=== PATIENT | female | born 2000 | race Caucasian/White ===

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

== ENCOUNTER → 2022-07-12 09:18 | Outpatient (BNVA) | payer BC, MEDICAID, SELFPAY | PROVIDERS: Visit Provider Nurse Practitioner Family | DX: R10.9 Unspecified abdominal pain (principal); K59.00 Constipation, unspecified; R80.9 Proteinuria, unspecified | CPT/HCPCS: 81000; 81025 ==

== ENCOUNTER 2022-07-25 18:22 | Emergency (ER) | payer MEDICAID, SELFPAY ==
[2022-07-25 18:27] VITALS: BP 126/77; PULSE 97; RESP 16; TEMP 36.8; O2SAT 99
--- NOTE | 2022-07-25 19:53 | W.ED.GENADLT ---
HPI - General Adult General: Chief complaint: General Medical Stated complaint: right side neck swelling Time Seen by Provider: 07/25/22 19:33 History of Present Illness: 22-year-old female comes in today with swelling in the right anterior neck. Patient reports feeling unwell. Patient denies any specific or localized symptoms except for the abnormality in her neck. Respirations are even. Patient appears mildly unwell but not toxic. Patient appears in mild to no pain. Patient denies any chronic medical problems. Patient is recently stopped her control. X2 days. Patient reports no other concerns or symptoms. Associated symptoms: Reports malaise; Deny chest pain, headache(s), nausea, rash or vomiting Review of Systems General: Reports: 10 or more systems reviewed and unremarkable except in HPI and below Const: Reports: malaise; Denies: fever(s) Eyes: Denies: eye discomfort ENMT: Denies: throat pain or ear or mastoid pain Card: Denies: chest pain Resp: Denies: productive cough GI: Denies: nausea, vomiting, diarrhea or constipation : Denies: difficulty voiding Musc: Reports: back pain (Related to work) Skin/Breast: Denies: rash or pruritus Neuro: Denies: headache(s) Damir/Lymph: Reports: enlarged lymph nodes (Right anterior neck) PFSH ED PFSH: Medical History No pertinent past medical history Surgical History No significant past surgical history Family History Father Diabetes Hypertension Mother Cancer Denies family history of Colon cancer Ovarian cancer Clotting disorder Heart disease Breast cancer Bleeding disorder Uterine cancer Stroke Social History Smoking and tobacco status: never smoked Substance/Drug Use: never Female Reproductive History: Para: 0 Physical Exam Const: COMMON NORMALS: alert HENMT: COMMON NORMALS: normocephalic and TM's normal bilaterally HEAD & SCALP: normocephalic NOSE: Normal nares present TYMPANIC MEMBRANE: TM's normal bilaterally MOUTH: Normal oral and palatal mucosa present THROAT: posterior oropharynx normal Eye: GENERAL EYE: appearance normal, both eyes and all related structures Neck/C-Spine: CERVICAL SPINE: Yes cervical ROM normal and No Cervical spine tenderness Lymph: LYMPHATIC: lymphadenopathy (Right anterior lymph node chain) Resp: COMMON NORMALS: normal respiratory effort and clear to auscultation bilaterally AUSCULTATION: clear to auscultation bilaterally Cardio: COMMON NORMALS: regular rate and regular rhythm RATE: regular rate RHYTHM: regular rhythm GI: COMMON NORMALS: Soft to palpation PALPATION: Yes Soft to palpation and Yes Tenderness to palpation present (GI) Details: RUQ : COMMON NORMALS: Yes no CVA tenderness BLADDER/KIDNEY EXAM: Yes no CVA tenderness Back/Pelvis: COMMON NORMALS: no CVA tenderness Extremity: COMMON NORMALS: normal to inspection Neuro: SENSORIUM/ORIENTATION: Yes alert Skin: COMMON NORMALS: turgor normal GENERAL SKIN EXAM: turgor normal Course Vital Signs: Vital signs: Vital Signs Temperature 98.2 F 07/25/22 18:27 Pulse Rate 97 07/25/22 18:27 Respiratory Rate 16 07/25/22 18:27 Blood Pressure 126/77 07/25/22 18:27 Pulse Oximetry 99 07/25/22 18:27 Oxygen Delivery Me thod Room Air 07/25/22 18:27 MDM - General Adult Medical Decision Making 22-year-old female comes in today for complaints of malaise for last 2 to 3 days. Patient also noted some increased lymphadenopathy in the right side of the neck. On exam posterior pharynx is pink moist. Teeth are in good repair. Bilateral TMs are clear. Nares is open without any signs of drainage. Lungs are clear to auscultation. Skin is warm and dry. Abdomen soft nontender. Differential diagnosis includes upper respiratory infection, tick fever, infectious mono, cat scratch fever, other lymphadenitis. CBC and CMP was unremarkable. Tick panel was outstanding. Monoscreen was negative. We will cover patient for bacterial infection with doxycycline 100 mg twice daily for 10 days. Recommended following up with primary care for recheck in 1 week return to ED for worsening symptoms or new concerns. Lab Data 07/25/22 20:15 07/25/22 20:15 Laboratory Results WBC 8.2 10^3/uL (4.5-13.0) 07/25/22 20:15 RBC 4.18 10^6/uL (4.1-5.3) 07/25/22 20:15 Hgb 12.4 g/dL (11.5-15.3) 07/25/22 20:15 Hct 39.5 % (37.0-47.0) 07/25/22 20:15 MCV 94.5 fl (81-99) 07/25/22 20:15 MCH 29.7 pg (28.0-34.0) 07/25/22 20:15 MCHC 31.4 g/dL (30.0-36.0) 07/25/22 20:15 RDW 14.7 % (12.1-15.1) 07/25/22 20:15 Plt Count 369 10^3/cmm (130-400) 07/25/22 20:15 MPV 9.6 fL (7.4-10.4) 07/25/22 20:15 Neut % (Auto) 55.5 % 07/25/22 20:15 Lymph % (Auto) 31.1 % 07/25/22 20:15 [place] % (Auto) 9.8 % 07/25/22 20:15 Eos % (Auto) 2.2 % 07/25/22 20:15 Baso % (Auto) 0.9 % 07/25/22 20:15 Neut # (Auto) 4.53 10^3/uL (1.8-8.0) 07/25/22 20:15 Lymph # (Auto) 2.5 10^3/uL (1.5-6.5) 07/25/22 20:15 [place] # (Auto) 0.8 10^3/uL (0.2-0.9) 07/25/22 20:15 Eos # (Auto) 0.2 10^3/uL (0.0-0.8) 07/25/22 20:15 Baso # (Auto) 0.1 10^3/uL (0.0-0.1) 07/25/22 20:15 Nucleated RBC % (auto) 0 % 07/25/22 20:15 Nucleated RBCs # 0.0 /100WBC 07/25/22 20:15 Sodium 135 mmol/L (136-145) L 07/25/22 20:15 Potassium 4.3 mmol/L (3.5-5.1) 07/25/22 20:15 Chloride 103 mmol/L (98-107) 07/25/22 20:15 Carbon Dioxide 23 mmol/L (22-29) 07/25/22 20:15 Anion Gap 13.3 (5-19) 07/25/22 20:15 BUN 8 mg/dL (6-20) 07/25/22 20:15 Creatinine 0.7 mg/dL (0.5-0.9) 07/25/22 20:15 GFR Calculation 106.7 mL/min (90-130) 07/25/22 20:15 Glucose 90 mg/dL (65-115) 07/25/22 20:15 Calculated Osmolality 278 mOsm/kg (285-295) L 07/25/22 20:15 Calcium 8.6 mg/dL (8.5-10.5) 07/25/22 20:15 Total Bilirubin 0.2 mg/dL (0.15-1.2) 07/25/22 20:15 AST 16 U/L (0-32) 07/25/22 20:15 ALT 13 U/L (0-33) 07/25/22 20:15 Alkaline Phosphatase 57 U/L (35-105) 07/25/22 20:15 Total Protein 7.0 g/dL (6.6-8.7) 07/25/22 20:15 Albumin 4.1 g/dL (3.5-5.2) 07/25/22 20:15 Globulin 2.9 g/dL (1.3-4.6) 07/25/22 20:15 Monoscreen Negative (Negative) 07/25/22 20:15 Discharge Plan Discharge Patient Disposition: Home Clinical Impression: Lymphadenitis Condition: Stable Prescriptions: New doxycycline monohydrate 100 mg capsule 100 mg PO BID 10 Days Qty: 20 0RF No Action diphenhydramine HCl [Benadryl] 25 mg capsule 25 mg PO TID PRN buspirone 5 mg tablet 5 mg PO BID Qty: 60 6RF triamcinolone acetonide 0.1 % cream 1 applic topical BID Qty: 15 0RF prednisone 20 mg tablet 20 mg PO DAILY Qty: 3 0RF Discharge Orders: Discharge ED (Routine); Ordered 07/25/22 Ordered By: Farooq Estrada Discharge Diet: Usual diet Discharge Activity: Increase activity as tolerated Patient Instructions: Lymphadenopathy (ED) Activity Restrictions/Additional Instructions: Take antibiotic as directed. Drink plenty of water with antibiotic. Avoid direct sunlight as you will be more sensitive to the sun while on antibiotic. Follow-up with primary care in 1 week for recheck. Return to ER for new concerns or worsening symptoms such as increased swelling of the neck, high fever greater than 100.4, shortness of breath. 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
[2022-07-25 20:22] LABS: Basophils # 0.1 10^3/uL (0.0-0.1); Basophils % 0.9 %; Eosinophils # 0.2 10^3/uL (0.0-0.8); Eosinophils % 2.2 %; Hematocrit 39.5 % (37.0-47.0); Hemoglobin 12.4 g/dL (11.5-15.3); Lymphocytes # 2.5 10^3/uL (1.5-6.5); Lymphocytes % 31.1 %; Mean Corpuscular HGB Conc 31.4 g/dL (30.0-36.0); Mean Corpuscular Hemoglobin 29.7 pg (28.0-34.0); Mean Corpuscular Volume 94.5 fl (81-99); Mean Platelet Volume 9.6 fL (7.4-10.4); Monocytes # 0.8 10^3/uL (0.2-0.9); Monocytes % 9.8 %; Neutrophils # 4.53 10^3/uL (1.8-8.0); Neutrophils % 55.5 %; Nucleated Red Blood Cells % 0 %; Platelet Count 369 10^3/cmm (130-400); Red Blood Count 4.18 10^6/uL (4.1-5.3); Red Cell Distribution Width 14.7 % (12.1-15.1); White Blood Count 8.2 10^3/uL (4.5-13.0)
[2022-07-25 20:34] LABS: Monoscreen Negative (Negative)
[2022-07-25 20:47] LABS: Alanine Aminotransferase 13 U/L (0-33); Albumin Level 4.1 g/dL (3.5-5.2); Alkaline Phosphatase 57 U/L (35-105); Anion Gap 13.3 (5-19); Aspartate Amino Transferase 16 U/L (0-32); Blood Urea Nitrogen 8 mg/dL (6-20); Calcium 8.6 mg/dL (8.5-10.5); Carbon Dioxide 23 mmol/L (22-29); Chloride 103 mmol/L (98-107); Globulin 2.9 g/dL (1.3-4.6); Glomerular Filtration Rate 106.7 mL/min (90-130); Glucose 90 mg/dL (65-115); Osmolality Calculated 278 mOsm/kg (285-295); Potassium 4.3 mmol/L (3.5-5.1); Sodium 135 mmol/L (136-145); Total Bilirubin 0.2 mg/dL (0.15-1.2)
[2022-07-28 13:00] LABS: Lyme AB Screen <0.90 index
--- NOTE | 2022-07-29 11:44 | DCPLANNER ---
Patient was called due to no primary care physician - patient sees Dr. Snell at [facility] [place].
[2022-08-02 16:59] LABS: RMSF IGG NOT DETECTED; RMSF IGM NOT DETECTED
[2022-08-04 17:19] LABS: E. Chaffeensis AB IGG <1:64; E. Chaffeensis AB IGM <1:20
== END 2022-07-25 21:01 | disposition home or self-care (01) ==
PROVIDERS: Emergency Provider Nurse Practitioner Family; PCP Family Medicine
DX: I88.9 Nonspecific lymphadenitis, unspecified (principal)
CPT/HCPCS: 36415; 80053; 85025; 86308; 86618; 86666; 86757; 99283

== ENCOUNTER 2022-07-31 20:02 | Emergency (ER) | payer MEDICAID, SELFPAY ==
[2022-07-31 20:11] VITALS: BP 122/76; PULSE 66; RESP 14; TEMP 36.8; O2SAT 100; BMI 16.9
--- NOTE | 2022-07-31 20:18 | W.ED.NECK ---
HPI - Neck Pain/Injury General: Chief Complaint: Neck Pain/Injury Stated Complaint: swollen lymph node Time Seen by Provider: 07/31/22 20:16 History of Present Illness: 22-year-old female comes in today for concerns of swelling in the neck. Patient was seen 1 week ago by this provider and noted what seemed to be an apparent swelling of the lymph nodes along the sternocleidomastoid neck muscle on the right side. Patient reports that she has more swelling centralized appears to be at this time in her thyroid region. Patient denies any problems swallowing. Patient just feels rundown more. Patient's lab work last week was unremarkable. We have got back a Lyme's titer which was negative but still have ehrlichiosis and [place] spotted fever testing outstanding. Review of Systems General: Reports: 10 or more systems reviewed and unremarkable except in HPI and below ENMT: Reports: other (Swelling in the neck) [facility] ED PFSH: Medical History No pertinent past medical history Surgical History No significant past surgical history Family History Father Diabetes Hypertension Mother Cancer Denies family history of Colon cancer Ovarian cancer Clotting disorder Heart disease Breast cancer Bleeding disorder Uterine cancer Stroke Social History Smoking and tobacco status: never smoked Substance/Drug Use: never Female Reproductive History: Para: 0 Physical Exam Const: COMMON NORMALS: alert HENMT: COMMON NORMALS: normocephalic HEAD & SCALP: normocephalic Neck/C-Spine: THYROID: diffusely enlarged Lymph: LYMPHATIC: no lymphadenopathy noted Resp: COMMON NORMALS: normal respiratory effort Cardio: COMMON NORMALS: regular rate and regular rhythm RATE: regular rate RHYTHM: regular rhythm GI: COMMON NORMALS: Soft to palpation and non-tender PALPATION: Yes Soft to palpation Back/Pelvis: COMMON NORMALS: thoracic and lumbar spine normal to inspection Extremity: COMMON NORMALS: full ROM Neuro: SENSORIUM/ORIENTATION: Yes alert Skin: COMMON NORMALS: turgor normal GENERAL SKIN EXAM: turgor normal Course Vital Signs: Vital signs: Vital Signs Temperature 98.2 F 07/31/22 20:11 Pulse Rate 66 07/31/22 20:11 Respiratory Rate 14 07/31/22 20:11 Blood Pressure 122/76 07/31/22 20:11 Pulse Oximetry 100 07/31/22 20:11 Oxygen Delivery Me thod Room Air 07/31/22 20:11 MDM - Neck Pain/Injury Medical Decision Making 22-year-old female comes in today with concerns of swelling in the anterior aspect of her throat. Patient was seen a week ago and had a what felt like a chain of lymph nodes that was enlarged in the right anterior aspect of her throat. Today it feels like she might actually have some enlargement of her thyroid. Posterior pharynx is pink and moist without any abnormal swelling. Vital signs are normal. Differential diagnosis includes not limited to goiter, cyst on the thyroid, thyroiditis, anxiety. TSH and free T4 were normal range. Ultrasound noted some simple cysts in both lobes of the thyroid. Recommend patient follow-up with primary care for further evaluation and treatment. No signs of severe illness or injury is noted today. Patient is stable to follow-up. Case management was requested to help with patient for appointment with PCP. Lab Data Radiology Impressions Thyroid Ultrasound 07/31/22 20:23 IMPRESSION: There are no acute concerning abnormalities. There are simple cysts in both lobes of the thyroid. Laboratory Results TSH 2.49 uIU/mL (0.27-4.20) 07/31/22 21:49 Free T4 1.59 ng/dL (0.82-1.77) 07/31/22 21:49 Discharge Plan Discharge Patient Disposition: Home Clinical Impression: Cyst of thyroid determined by ultrasound Condition: Stable Prescriptions: No Action diphenhydramine HCl [Benadryl] 25 mg capsule 25 mg PO TID PRN buspirone 5 mg tablet 5 mg PO BID Qty: 60 6RF triamcinolone acetonide 0.1 % cream 1 applic topical BID Qty: 15 0RF prednisone 20 mg tablet 20 mg PO DAILY Qty: 3 0RF doxycycline monohydrate 100 mg capsule 100 mg PO BID 10 Days Qty: 20 0RF Discharge Orders: Discharge ED (Routine); Ordered 07/31/22 Ordered By: Farooq Estrada Referrals: Jamaal Snell MD [Primary Care Provider] - Activity Restrictions/Additional Instructions: Follow-up with primary care for further testing and evaluation. Drink plenty of water and fluids. Return to ER for new concerns. 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
--- NOTE | 2022-07-31 20:23 | USR_ITS ---
PROCEDURE INFORMATION: Exam: US Soft Tissue Head and Neck, Thyroid Exam date and time: 07/31/2022 8:49 PM Age: 22 years old Clinical indication: Throat pain; Additional info: Swelling of thyroid TECHNIQUE: Imaging protocol: Real-time ultrasound scan of the neck with image documentation. Exam focused on the thyroid. COMPARISON: No relevant prior studies available. FINDINGS: Right thyroid lobe: The measures 4 x 1.2 x 1.2 cm. There is a 0.4 cm simple cyst in the right thyroid. Left thyroid lobe: Measures 4.1 x 1.2 x 0.9 cm. There are simple cysts in the inferior left thyroid measuring 0.2 cm , 0.3 cm and 0.4 x 0.2 cm. Isthmus: No nodules. US/US thyroid [id number] IMPRESSION: There are no acute concerning abnormalities. There are simple cysts in both lobes of the thyroid.
[2022-07-31 22:32] LABS: Free T4 Free Thyroxine 1.59 ng/dL (0.82-1.77); Thyroid Stimulating Hormone 2.49 uIU/mL (0.27-4.20)
[2022-07-31 23:16] LABS: Parathyroid Hormone 26.2 pg/mL (15-65)
[2022-07-31 23:26] LABS: 25 Hydroxy Vitamin D 39 ng/mL (30-100)
--- NOTE | 2022-08-01 11:59 | PC.SOCIAL ---
Appt scheduled with Dr. Snell on August at 315; patient notified.
[2022-08-02 15:05] LABS: T3 Total 155 ng/dL (86-192)
[2022-08-03 10:56] LABS: Thyroid Peroxidase Antobodies <1 IU/mL (<9)
== END 2022-07-31 23:01 | disposition home or self-care (01) ==
PROVIDERS: Emergency Provider Nurse Practitioner Family; PCP Family Medicine
DX: E04.1 Nontoxic single thyroid nodule (principal)
CPT/HCPCS: 76536; 82306; 82310; 83970; 84439; 84443; 84480; 86376; 99284

== ENCOUNTER 2022-09-10 00:54 | Emergency (ER) | payer MEDICAID, SELFPAY ==
[2022-09-10 01:00] VITALS: BP 115/82; PULSE 81; RESP 18; TEMP 36.6; O2SAT 99; BMI 17.2
--- NOTE | 2022-09-10 01:03 | ECG_ITS ---
[facility] Test Date: 2022-09-10 Pat Name: Sandrine Shelton Department: Room: Gender: Female Employee Development Specialist: : 2000 Requested By: Farooq Vincent Order Number: [id number] MD: Quentin Kumar M.D. Measurements Intervals D Lo Rate: 79 P: 60 AL: 178 QRS: 34 QRSD: 78 T: 48 QT: 364 QTc: 419 Interpretive Statements SINUS RHYTHM No previous ECG available for comparison Electronically Signed On 09-10-2022 19:50:01 CDT by Quentin Kumar M.D. [email or web address]
--- NOTE | 2022-09-10 01:03 | XRR_ITS ---
PROCEDURE INFORMATION: Exam: XR Chest Exam date and time: 09/10/2022 1:06 AM Age: 22 years old Clinical indication: Chest pressure; Patient HX: C/O chest pain; Additional info: Chest pain, dyspnea TECHNIQUE: Imaging protocol: Radiologic exam of the chest. Views: 1 view. COMPARISON: No relevant prior studies available. FINDINGS: Lungs: Subtle hazy opacities are seen in left lung base possibly representing atelectasis although left basilar pneumonitis cannot be excluded. Pleural spaces: Unremarkable. No pleural effusion. No pneumothorax. Heart/Mediastinum: Unremarkable. No cardiomegaly. Bones/joints: Unremarkable. XR/XR chest 1V portable [id number] IMPRESSION: Subtle haziness in the left lung base may represent atelectasis although left basilar pneumonitis cannot be excluded.
--- NOTE | 2022-09-10 01:04 | W.ED.CHESTPA ---
HPI - Chest Pain General: Chief Complaint: Chest Pain Stated Complaint: Chest pain/sob Time Seen by Provider: 09/10/22 01:03 History of Present Illness: 22-year-old female comes in today with complaints of chest discomfort and feeling of not being able to catch her breath. Patient appears nontoxic. Patient appears in no pain. Patient does appear tearful. Patient has had a history of anxiety. Patient denies any alcohol, tobacco, marijuana, or other drugs. Associated symptoms: Reports dyspnea; Deny fever(s), nausea or vomiting Review of Systems General: Denies: 10 or more systems reviewed and unremarkable except in HPI and below Const: Denies: fever(s) Card: Reports: chest pain Resp: Reports: dyspnea GI: Denies: nausea, vomiting, diarrhea or constipation Musc: Denies: neck pain or back pain PFS ED PFSH: Medical History No pertinent past medical history Surgical History No significant past surgical history Family History Father Diabetes Hypertension Mother Cancer Denies family history of Colon cancer Ovarian cancer Clotting disorder Heart disease Breast cancer Bleeding disorder Uterine cancer Stroke Social History Smoking and tobacco status: never smoked Substance/Drug Use: never Female Reproductive History: Para: 0 Physical Exam Const: COMMON NORMALS: alert HENMT: COMMON NORMALS: normocephalic and Normal external nose present HEAD & SCALP: normocephalic NOSE: Normal external nose present MOUTH: Normal oral and palatal mucosa present THROAT: posterior oropharynx normal Neck/C-Spine: COMMON NORMALS: full ROM Resp: COMMON NORMALS: normal respiratory effort and clear to auscultation bilaterally AUSCULTATION: clear to auscultation bilaterally Cardio: COMMON NORMALS: regular rate and regular rhythm RATE: regular rate RHYTHM: regular rhythm Back/Pelvis: COMMON NORMALS: thoracic and lumbar spine normal to inspection Extremity: COMMON NORMALS: normal to inspection Neuro: SENSORIUM/ORIENTATION: Yes alert Skin: COMMON NORMALS: turgor normal GENERAL SKIN EXAM: turgor normal Course Vital Signs: Vital signs: Vital Signs Temperature 98 F 08/06/23 01:00 Pulse Rate 81 09/10/22 01:00 Respiratory Rate 18 09/10/22 01:00 Blood Pressure 115/82 09/10/22 01:00 Pulse Oximetry 99 09/10/22 01:00 Oxygen Delivery Me thod Room Air 09/10/22 01:00 MDM - Chest Pain Medical Decision Making 22-year-old female comes in today with some shortness of breath and chest discomfort. On exam EKG was normal sinus rhythm. Chest x-ray showed no abnormality. Patient was tearful and appeared anxious. Differential diagnosis includes panic disorder, general anxiety disorder, pneumothorax, ACS, pneumonia. Chest x-ray was unremarkable, EKG was normal sinus rhythm. Reassured patient that there was no significant abnormality recommended follow-up with primary care. Mother stated that patient had been having difficulty with swallowing also and felt that she needed referral to gear shaper set up operator. I had seen patient before for these issues and at that time it was noted patient had some simple cysts of the thyroid. There is no sign of infection or other abnormality. I agreed to plan in a case management referral for ear nose and throat follow-up due to difficulty swallowing. Patient will follow-up with primary care regarding panic disorder and possible a generalized anxiety disorder. Patient reported understanding agreed to plan. EKG Data EKG 1: EKG interpretation date: 09/10/22 EKG interpretation time: :18 Prior EKG tracings: available for review Interpretation: EKG shows a normal sinus rhythm with a regular rate at [address] elevation or ectopy is noted. Computer generated interpretation: Sinus rhythm, normal EKG, unconfirmed report. Discharge Plan Discharge Patient Disposition: Home Clinical Impression: Chest pain, non-cardiac, Anxiety about health Dysphagia Qualifiers: Dysphagia type: unspecified Qualified Code(s): R13.10 - Dysphagia, unspecified Condition: Stable Prescriptions: No Action diphenhydramine HCl [Benadryl] 25 mg capsule 25 mg PO TID PRN buspirone 5 mg tablet 5 mg PO BID Qty: 60 6RF triamcinolone acetonide 0.1 % cream 1 applic topical BID Qty: 15 0RF prednisone 20 mg tablet 20 mg PO DAILY Qty: 3 0RF Discharge Orders: Discharge ED (Routine); Ordered 09/10/22 Ordered By: Farooq Estrada Referrals: Shirley Montalvo FNP [Primary Care Provider] - Discharge Diet: Usual diet Discharge Activity: Increase activity as tolerated Patient Instructions: Anxiety (ED) Activity Restrictions/Additional Instructions: Follow-up with primary care for further instructions. Case management will contact you regarding follow-up with gear shaper set up operator for difficulty swallowing. Return to ED for new concerns. 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
[2022-09-10 01:44] VITALS: BP 102/72; PULSE 75; RESP 18; O2SAT 99
--- NOTE | 2022-09-11 10:36 | DCPLANNER ---
Addendum entered by Maribell Vogt 09/21/22 09:34: Patient did attend appointment with ENT Addendum entered by Maribell Vogt 09/13/22 08:48: Patient has a follow up appointment scheduled for Tuesday, September 20, 2022 at 8:[address] Florentino at ENT. Original Note: newspaper library manager had message to schedule a follow up appointment for patient with ENT. newspaper library manager sent patients information to the front office staff at ENT. Patients information will be printed and reviewed. Clinic will call patient with appointment information.
== END 2022-09-10 01:48 | disposition home or self-care (01) ==
PROVIDERS: Emergency Provider Nurse Practitioner Family; PCP Nurse Practitioner Family
DX: R07.89 Other chest pain (principal); F41.8 Other specified anxiety disorders; R13.10 Dysphagia, unspecified
CPT/HCPCS: 71045; 93005; 99284